=== PATIENT | male | born 1990 | race Caucasian/White ===

== ENCOUNTER → 2022-07-29 07:42 | Outpatient (BNVA) | payer OTHER, SELFPAY | PROVIDERS: PCP Nurse Practitioner; Visit Provider Urology | DX: R79.89 Other specified abnormal findings of blood chemistry (principal) | CPT/HCPCS: 81003; 99203 ==

== ENCOUNTER 2022-09-30 06:34 | Outpatient (CLI) | payer OTHER, SELFPAY ==
[2022-09-30 07:26] LABS: Testosterone Total - Urology 138 ng/mL (300-1000)
== END 2022-09-30 06:35 | disposition home or self-care (01) ==
LOC: LAB 06:36
PROVIDERS: PCP Nurse Practitioner; Visit Provider Urology
DX: R79.89 Other specified abnormal findings of blood chemistry (principal)
CPT/HCPCS: 36415; 84403; 99213

== ENCOUNTER → 2022-12-29 15:31 | Outpatient (BNVA) | payer OTHER, SELFPAY | PROVIDERS: PCP Nurse Practitioner; Visit Provider Urology | DX: R79.89 Other specified abnormal findings of blood chemistry (principal); E34.9 Endocrine disorder, unspecified | CPT/HCPCS: 81003; 99213 ==

== ENCOUNTER → 2024-07-12 10:46 | Outpatient (BNVA) | payer OTHER, SELFPAY | PROVIDERS: PCP Nurse Practitioner; Referring Provider Nurse Practitioner; Visit Provider Nurse Practitioner Family | DX: L57.0 Actinic keratosis (principal); D22.5 Melanocytic nevi of trunk; L81.4 Other melanin hyperpigmentation; Z71.89 Other specified counseling | CPT/HCPCS: 17000; 99203 ==